=== PATIENT | female | born 1975 | race Caucasian/White ===

== ENCOUNTER 2022-04-10 13:40 | Emergency (ER) | payer OTHER ==
[2022-04-10 14:11] VITALS: BP 190/93
--- NOTE | 2022-04-10 14:41 | ERPHSYRPT ---
- History of Present Illness Time Seen by Provider: 04/10/22 14:15 Source: patient Exam Limitations: no limitations Patient Subjective Stated Complaint: C/O pain and swelling to her right upper leg for the past few months. Triage Nursing Assessment: Patient ambulated back to ED with an uneven gait. She is alert and oriented. No SOB. BLE examined. No swelling noted to right upper leg. When asked exactly where the pain was located, the patient rubbed her right posterior thigh. Pain was described at "a severe leonel horse." NO skin alterations or abnormal skin tone/color noted at this time. RLE and LLE feel the same temperature to touch. Physician History: This a 46-year-old white female has never been to the emergency department in the past and presents with right posterior thigh pain. She described it as a "c ramp" or "charley horse". It has been present for 2 months. She does not have a local primary care provider. She denies any fall or acute trauma or injury. She denies cough. She denies chest pain and she denies shortness of breath. Patient is on Plavix chronically because she has had a history of pulmonary embolus in the past. Patient has a history of hypertension and history of hyperlipidemia. Patient states that the pain is not necessarily worse but will not go away. Method of Injury: other (No injury) Occurred: other (Pain for over 2 months) Quality: intermittent, aching, cramping Severity of Pain-Max: moderate Severity of Pain-Current: moderate Lower Extremities Pain: thigh: right (Posterior) Modifying Factors: Improves With: movement Associated Symptoms: other (Hurts to walk but can do so) Allergies/Adverse Reactions: No Known Drug Allergies Allergy (Verified 04/10/22 13:48) Home Medications: Atorvastatin Calcium 1 tab PO DAILY 04/10/22 [History] Clopidogrel Bisulfate [PLAVIX Tablet] 1 tab PO DAILY 04/10/22 [History] Escitalopram Oxalate [Lexapro] 1 tab PO DAILY 04/10/22 [History] Gabapentin [Neurontin ] 1 cap PO TID 04/10/22 [History] Lisinopril 20 mg [Zestril 20 MG] 1 tab PO DAILY 04/10/22 [History] Trazodone HCl 50 mg [Desyrel 50 mg] 1 tab PO HS 04/10/22 [History] Hx Tetanus, Diphtheria Vaccination/Date Given: Yes Hx Influenza Vaccination/Date Given: Yes Hx Pneumococcal Vaccination/Date Given: No Immunizations Up to Date: Yes Travel Risk - International Travel Have you traveled outside of the country in past 3 weeks: No - Coronavirus Screening Are you exhibiting any of the following symptoms?: No Close contact with a COVID-19 positive Pt in past 14-21 Days: No - Vaccine Status Have you recieved a Covid-19 vaccination: Yes Ecommerce Marketing Manager: [email or web address] - Review of Systems Constitutional: No Symptoms Eyes: No Symptoms Ears, Nose, & Throat: No Symptoms Respiratory: No Symptoms Cardiac: No Symptoms Abdominal/Gastrointestinal: No Symptoms Genitourinary Symptoms: No Symptoms Musculoskeletal: Other (Pain right posterior thighcrampy) Skin: No Symptoms Neurological: No Symptoms Psychological: No Symptoms Endocrine: No Symptoms Hematologic/Lymphatic: No Symptoms Immunological/Allergic: No Symptoms All Other Systems: Reviewed and Negative - Past Medical History Pertinent Past Medical History: Yes Cardiac History: High Cholesterol, Hypertension Endocrine Medical History: Diabetes Type II Musculoskeletal History: Arthritis GI Medical History: Gallbladder Disease Psycho-Social History: Anxiety, Depression Other Medical History: "blood clot", Lumbago with sciatica (right side) - Past Surgical History Past Surgical History: Yes Cardiac: Cardiac Catheterization, Cardiac Stent Gastrointestinal: Cholecystectomy Musculoskeletal: Other Female Surgical History: Tubal Ligation Other Surgical History: Left tear duct, tubes in ears, fatty tumor removal, Lt knee - Social History Smoking Status: Current every day smoker How long have you smoked: 37 years Exposure to second hand smoke: No Drug Use: marijuana - Female History Hx Last Menstrual Period: Last week Hx Now: No - Nursing Vital Signs Nursing Vital Signs: Initial Vital Signs Temperature 98 F 04/10/22 13:50 Pulse Rate 114 H 04/10/22 13:50 Respiratory Rate 17 04/10/22 13:50 Blood Pressure 190/93 04/10/22 13:50 O2 Sat by Pulse Oximetry 100 04/10/22 13:50 Pain Scale Pain Intensity 10 - Physical Exam General Appearance: no apparent distress, alert, anxiety Eyes, Ears, Nose, Throat Exam: moist mucous membranes, other (Dentulous) Neck Exam: normal inspection, non-tender, supple, full range of motion Cardiovascular/Respiratory Exam: chest non-tender, no respiratory distress Gastrointestinal/Abdominal Exam: non-tender Back Exam: normal inspection, normal range of motion, No CVA tenderness, No vertebral tenderness Hips Exam: bilateral: non-tender, normal inspection, normal range of motion, no evidence of injury Legs Exam: right leg: soft tissue tenderness (Posterior thigh. No evidence of infection or ecchymosis), left leg: non-tender, bilateral leg: normal inspection, normal range of motion, no evidence of injury Knees Exam: bilateral knee: non-tender, normal inspection, normal range of motion, no evidence of injury Ankle Exam: bilateral ankle: non-tender, normal inspection, normal range of motion, no evidence of injury Foot Exam: bilateral foot: non-tender, normal inspection, normal range of motion, no evidence of injury Neuro/Tendon Exam: normal sensation, normal motor functions, normal tendon functions Mental Status Exam: alert, oriented x 3, cooperative Skin Exam: normal color, warm, dry SpO2 Interpretation: normal SpO2: 100 O2 Delivery: Room Air - Course Nursing assessment & vital signs reviewed: Yes Ordered Tests: Active Orders 24 hr Category Date Time Status BMP Stat Lab 04/10/22 14:02 Ordered D-DIMER QUANTITATIVE Stat Lab 04/10/22 14:02 Ordered MAG [MAGNESIUM] Stat Lab 04/10/22 14:02 Ordered - Progress Progress: improved, pain not gone completely Counseled pt/family regarding: lab results, diagnosis, need for follow-up - Departure Departure Disposition: Home Clinical Impression: Pain in posterior right lower extremity Condition: Stable Critical Care Time: No Referrals: DOCTOR,NO FAMILY [Primary Care Provider] - Follow up/PCP as directed Additional Instructions: Alternate ice and heat to the area of tenderness 3 times a day. Massage the area after each ice and heat application. Take your medication as prescribed. Follow-up with your primary care provider for further evaluation management. Monitor your blood sugar closely when taking your steroids Prescriptions: Prednisone 10 mg [Deltasone 10 mg] 10 mg PO TID #12 tablet Orphenadrine Citrate 100 mg [Norflex 100 MG Tablet] 100 mg PO BID #10 tab
[2022-04-10] MEDS ORDERED: PERCOCET TABLET 5/325MG PO STA (14:44)
[2022-04-10] MEDS ORDERED: solu-MEDROL 125 MG, Sterile H2O 10 ml 2 ML IM ONE ×2 (14:44)
[2022-04-10] MEDS ORDERED: Norflex 60 MG/2 ML IM ONE (14:45)
[2022-04-10] MEDS ORDERED: solu-MEDROL ONE (14:47)
[2022-04-10] MEDS ORDERED: Norflex 60 MG/2 ML ONE (14:47)
[2022-04-10] MEDS ORDERED: Sterile H2O 10 ml IJ ONE (14:47)
[2022-04-10] MEDS ORDERED: PERCOCET TABLET 5/325MG ONE (14:47)
[2022-04-10 14:55] LABS: ANION GAP 8.1 MEQ/L (5-15); BLOOD UREA NITROGEN 8 mg/dL (7-17); CHLORIDE 105 mmol/L (98-107); Calcium 9.3 mg/dL (8.4-10.2); Carbon Dioxide 26 mmol/L (22-30); Creatinine 1 0.46 mg/dL (0.52-1.04); EST GLOMERULAR FILTRATION RATE > 60.0 ML/MIN; Glucose 202 mg/dL (74-106); Potassium 3.8 mmol/L (3.5-5.1); SODIUM 136 mmol/L (137-145)
[2022-04-10 14:56] VITALS: PULSE 104; O2SAT 99
== END 2022-04-10 15:34 | disposition home or self-care (01) ==
LOC: ED 13:40
DX: M79.651 Pain in right thigh (principal); I10 Essential (primary) hypertension; E78.5 Hyperlipidemia, unspecified; E11.9 Type 2 diabetes mellitus without complications; Z72.0 Tobacco use; Z79.02 Long term (current) use of antithrombotics/antiplatelets; Z79.899 Other long term (current) drug therapy; Z79.52 Long term (current) use of systemic steroids
CPT/HCPCS: 36415; 80048; 83735; 85379; 96372; 99283; J2360; J2930; A9270-GY

== ENCOUNTER 2022-06-23 07:38 | Day surgery (SDC) | payer OTHER | END 2022-06-23 08:10 | disposition home or self-care (01) | LOC: SDC-PAIN 07:38 | PROVIDERS: ATTEND Psychiatry & Neurology Pain Medicine | DX: R73.9 Hyperglycemia, unspecified (principal); Z53.8 Procedure and treatment not carried out for other reasons | CPT/HCPCS: 82947 ==

== ENCOUNTER 2022-07-07 06:45 | Day surgery (SDC) | payer OTHER ==
[2022-07-07] MEDS ORDERED: Depo-Medrol 40 MG/ML IM ONE (06:46)
[2022-07-07] MEDS ORDERED: Sodium Chloride 0.9(Preservative Free) 10 ML IJ ONE (06:46)
[2022-07-07] MEDS ORDERED: DIPRIVAN 200 MG/20 ML IV ONE (08:47)
--- NOTE | 2022-07-07 09:53 | XRAY ---
Indication: Right L4-S1 transforaminal BEVERLY. Intraoperative fluoroscopy provided for 25 seconds. 4 digital spot image submitted for interpretation demonstrates posterior needle tips projecting over the expected right L4 and L5 nerve roots. Small amount of contrast injected for needle tip placement. Correlate with intraoperative findings/report.
[2022-07-07] MEDS ORDERED: Lactated Ringers 1,000 ML IV ONE (10:11)
--- NOTE | 2022-07-07 10:49 | XRAY ---
25 seconds of fluoroscopy was used in surgery for a right L4-S1 transforaminal BEVERLY.
== END 2022-07-07 09:15 | disposition home or self-care (01) ==
LOC: SDC-PAIN 06:45
PROVIDERS: ATTEND Psychiatry & Neurology Pain Medicine
DX: M54.16 Radiculopathy, lumbar region (principal); Z79.899 Other long term (current) drug therapy
CPT/HCPCS: 64483; 64484; 72100; 77003; 81025; 82947; J1030; J2704; Q9966

== ENCOUNTER 2022-08-11 08:53 | Day surgery (SDC) | payer OTHER ==
[2022-08-11] MEDS ORDERED: Sodium Chloride 0.9(Preservative Free) 10 ML IJ ONE (08:54)
[2022-08-11] MEDS ORDERED: LIDOCAINE HCL 1% 50 MG/5 ML VL PF IJ ONE (08:54)
[2022-08-11] MEDS ORDERED: Depo-Medrol 40 MG/ML IM ONE (08:54)
[2022-08-11] MEDS ORDERED: Decadron 4 MG INJ IV ONE (08:54)
[2022-08-11] MEDS ORDERED: DIPRIVAN 200 MG/20 ML IV ONE (10:13)
--- NOTE | 2022-08-11 11:41 | XRAY ---
Indication: Right L4-S1 transforaminal BEVERLY. Intraoperative fluoroscopy provided for 28 seconds. 2 digital spot image submitted for interpretation demonstrates posterior needle tips projecting over the expected right L4 and L5 nerve roots. Small amount of contrast injected for needle tip placement. Correlate with intraoperative findings/report.
--- NOTE | 2022-08-11 11:42 | XRAY ---
Indication: Right piriformis injection. Intraoperative fluoroscopy provided for 9 seconds. Single digital spot image submitted for interpretation demonstrates posterior needle tip projecting over the expected right piriformis muscle. Small amount of contrast injected for needle tip placement. Correlate with intraoperative findings/report.
--- NOTE | 2022-08-11 12:52 | XRAY ---
9 seconds fluoroscopy time in surgery for right piriformis injection.
--- NOTE | 2022-08-11 12:52 | XRAY ---
28 seconds fluoroscopy time in surgery for right L4-S1 transforaminal BEVERLY.
[2022-08-11] MEDS ORDERED: Lactated Ringers 1,000 ML IV ONE (13:16)
== END 2022-08-11 10:45 | disposition home or self-care (01) ==
LOC: SDC-PAIN 08:53
PROVIDERS: ATTEND Psychiatry & Neurology Pain Medicine
DX: M54.16 Radiculopathy, lumbar region (principal); M79.18 Myalgia, other site; Z79.899 Other long term (current) drug therapy
CPT/HCPCS: 20552; 64483; 64484; 72100; 72170; 77002; 77003; 81025; 82947; J1030; J1100; J2001; J2704; Q9966

== ENCOUNTER 2023-01-19 07:30 | Day surgery (SDC) | payer OTHER ==
[2023-01-19] MEDS ORDERED: Depo-Medrol 40 MG/ML IM ONE (07:31)
[2023-01-19] MEDS ORDERED: Sodium Chloride 0.9(Preservative Free) 10 ML IJ ONE (07:31)
[2023-01-19 07:45] LABS: HCG URINE TEST NEGATIVE (NEGATIVE)
[2023-01-19] MEDS ORDERED: DIPRIVAN 200 MG/20 ML IV ONE (08:35)
--- NOTE | 2023-01-19 10:19 | XRAY ---
Indication: Right L4-S1 transforaminal BEVERLY. Intraoperative fluoroscopy provided for 27 seconds. 4 digital spot image submitted for interpretation demonstrates posterior needle tips projecting over the right L4 and L5 nerve roots. Small amount of contrast injected for needle tip placement. Correlate with intraoperative findings/report.
--- NOTE | 2023-01-19 10:54 | XRAY ---
27 seconds of fluoroscopy was used in surgery for a right L4-S1 transforaminal BEVERLY.
[2023-01-19] MEDS ORDERED: Lactated Ringers 1,000 ML IV ONE (13:33)
== END 2023-01-19 09:04 | disposition home or self-care (01) ==
LOC: SDC-PAIN 07:30
PROVIDERS: ATTEND Psychiatry & Neurology Pain Medicine
DX: M54.16 Radiculopathy, lumbar region (principal); Z79.899 Other long term (current) drug therapy
CPT/HCPCS: 64483; 64484; 72100; 77003; 81025; 82947; J1030; J2704; Q9966

== ENCOUNTER 2023-10-07 18:06 | Emergency (ER) | payer BC, OTHER ==
[2023-10-07 18:22] VITALS: TEMP 97.8
--- NOTE | 2023-10-07 18:24 | ERPHSYRPT ---
- History of Present Illness Source: patient, EMS Exam Limitations: no limitations Patient Subjective Stated Complaint: PT states "I have been under allot of stress for the past two months and my chest has hurt for the past two months as well>" Triage Nursing Assessment: Pt presented alert and oriented X 3, skin pwd. Pt ambulates with an upright steady gait, able to speak in clear full sentences. Pt resting comfortabl hon [facility] bed. Hx Tetanus, Diphtheria Vaccination/Date Given: No Hx Influenza Vaccination/Date Given: Yes Hx Pneumococcal Vaccination/Date Given: No Immunizations Up to Date: Yes <MARCIO RIVERA - Last Filed: 10/07/23 18:54> <DAYANA BUTLER - Last Filed: 10/07/23 21:23> - History of Present Illness Physician History: Patient here with chest pain for 2 months. Midsternal. Nonradiating. Has been going on for a few weeks. Worse over the last 1 week. 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 No fever no chills. Given 325 aspirin prior to arrival. No EKG changes in the ambulance ride per EMS. I was able to review this. Patient is taking PO well. Same number of urinations and defecations. The patient has no signs of altered mental status, nuchal rigidity, signs of meningitis. The patient is up-to-date on all vaccinations. (MARCIO RIVERA) Allergies/Adverse Reactions: No Known Drug Allergies Allergy (Verified 03/01/23 09:20) Home Medications: Atorvastatin Calcium 1 tab PO DAILY 04/10/22 [History] Clopidogrel Bisulfate [PLAVIX Tablet] 1 tab PO DAILY 04/10/22 [History] Escitalopram Oxalate [Lexapro] 1 tab PO DAILY 04/10/22 [History] Gabapentin [Neurontin ] 800 mg PO TID 04/10/22 [History] Lisinopril 20 mg [Zestril 20 MG] 1 tab PO DAILY 04/10/22 [History] Acetaminophen 500 mg [Tylenol Extra Strength 500 mg] 500 mg PO DAILY 03/01/23 [History] Albuterol Sulfate [Proair Respiclick] 90 mcg IH DAILY 03/01/23 [History] Insulin Aspart [Novolog] 100 unit SQ UD 03/01/23 [History] Omeprazole 40 mg PO DAILY 03/01/23 [History] Topiramate 25 mg [Topamax 25 MG] 25 mg PO DAILY 03/01/23 [History] Travel Risk - International Travel Have you traveled outside of the country in past 3 weeks: No - Emerging Infectious Disease Are you exhibiting symptoms associated with any current EIDs: No <MARCIO RIVERA - Last Filed: 10/07/23 18:54> - Past Medical History Pertinent Past Medical History: Yes Neurological History: Migraines Cardiac History: Coronary Artery Disease, High Cholesterol, Hypertension Respiratory History: Asthma Endocrine Medical History: Diabetes Type I Musculoskeletal History: Degenerative Disk Disease GI Medical History: GERD, Gallbladder Disease Psycho-Social History: Anxiety, Depression Other Medical History: DEPRESSION, GERD. HX OF CARDIAC STENT X 1, CARDIAC ABL ATION, CHOLECYSTECTOMY. amenia - Past Surgical History Past Surgical History: Yes Cardiac: Cardiac Catheterization, Cardiac Stent Gastrointestinal: Cholecystectomy Musculoskeletal: Other Female Surgical History: Tubal Ligation Other Surgical History: Left tear duct, tubes in ears, fatty tumor removal, Lt knee - Female History Hx Last Menstrual Period: 09/16/2023 Hx Now: No - Social History Smoking Status: Current every day smoker How long have you smoked: 37 years Exposure to second hand smoke: Yes Drug Use: marijuana <MARCIO RIVERA - Last Filed: 10/07/23 18:54> - Physical Exam SpO2 Interpretation: normal SpO2: 98 <MARCIO RIVERA - Last Filed: 10/07/23 18:54> - Nursing Vital Signs Nursing Vital Signs: Initial Vital Signs Temperature 97.8 F 10/07/23 18:15 Pulse Rate 110 H 10/07/23 18:15 Respiratory Rate 22 10/07/23 18:15 Blood Pressure 146/91 10/07/23 18:15 O2 Sat by Pulse Oximetry 98 10/07/23 18:15 Pain Scale Pain Intensity 4 - Physical Exam Comments: 10/07/23 18:22 Review of Systems Constitutional: Negative for fever. HENT: Negative for congestion. Respiratory: Negative for shortness of breath. Cardiovascular: Chest pain Gastrointestinal: Negative for abdominal pain. Genitourinary: Negative for dysuria. Musculoskeletal: Negative for back pain. Skin: Negative for rash. Neurological: Negative for headaches. Psychiatric/Behavioral: Negative for behavioral problems. All other systems reviewed and are negative. Physical Exam Vitals signs and nursing note reviewed. Constitutional: Appearance: Patient is well-developed. HENT: Head: Normocephalic and atraumatic. Eyes: Conjunctiva/sclera: Conjunctivae normal. Neck: Musculoskeletal: Normal range of motion. Trachea: No tracheal deviation. Cardiovascular: Rate and Rhythm: Normal rate. Pulmonary: Effort: Pulmonary effort is normal. No respiratory distress. Abdominal: Palpations: Abdomen is soft. Musculoskeletal: General: No deformity. Skin: General: Skin is warm and dry. Neurological/ Psychiatric: Mental Status: Mental status, behavior, interaction with environment is appropriate for patient's age and condition (MARCIO RIVERA) - Course Nursing assessment & vital signs reviewed: Yes EKG Interpreted by Me: Sinus Rhythm <MARCIO RIVERA - Last Filed: 10/07/23 18:54> - Course EKG Interpreted by Me: Sinus Rhythm <DAYANA BUTLER - Last Filed: 10/07/23 21:23> Ordered Tests: Active Orders 24 hr Category Date Time Status EKG-ER Only STAT Care 10/07/23 18:37 Active IV Insertion STAT Care 10/07/23 18:37 Active CHEST 1 VIEW (PORTABLE) Stat Exams 10/07/23 18:10 Taken CBC W DIFF Stat Lab 10/07/23 18:20 Completed CK-Creatinine Phosphokinase Stat Lab 10/07/23 18:20 Completed CMP Stat Lab 10/07/23 18:20 Completed D-DIMER QUANTITATIVE Stat Lab 10/07/23 18:20 Completed HCG QUALITATIVE, SERUM Stat Lab 10/07/23 18:20 Completed LIPASE Stat Lab 10/07/23 18:20 Completed NT PRO BNPII Stat Lab 10/07/23 18:20 Completed TROPONIN Q4H Lab 10/07/23 18:20 Completed TROPONIN Q4H Lab 10/07/23 20:25 Completed TROPONIN Q4H Lab 10/08/23 02:15 Ordered Lab/Rad Data: Laboratory Result Diagrams 10/07/23 18:20 10/07/23 18:20 Laboratory Results 10/07/23 10/07/23 10/07/23 Range/Units 20:25 18:20 18:20 WBC (4.0-10.5) x10^3/uL RBC (4.1-5.4) x10^6/uL Hgb (12.0-16.0) g/dL Hct (35-47) % MCV (78-100) fL MCH (26-32) pg MCHC (32-36) g/dL RDW (11.5-14.0) % Plt Count (150-450) x10^3/uL MPV (7.5-11.0) fL Gran % (36.0-66.0) % Immature Gran % (Auto) (0.00-0.4) % Nucleat RBC Rel Count (0.00-0.1) % Eos # (Auto) (0-0.5) x10^3/uL Immature Gran # (Auto) (0.00-0.03) x10^3u/L Absolute Lymphs (auto) (1.0-4.6) x10^3/uL Absolute Monos (auto) (0.0-1.3) x10^3/uL Absolute Nucleated RBC (0.00-0.01) x10^3u/L Lymphocytes % (24.0-44.0) % Monocytes % (0.0-12.0) % Eosinophils % (0.00-5.0) % Basophils % (0.0-0.4) % Absolute Granulocytes (1.4-6.9) x10^3/uL Basophils # (0-0.4) x10^3/uL D-Dimer (0.0-0.50) mg/L Sodium (135-145) mmol/L Potassium (3.5-5.1) mmol/L Chloride (98-107) mmol/L Carbon Dioxide (22-30) mmol/L Anion Gap (5-15) MEQ/L BUN (7-17) mg/dL Creatinine (0.52-1.04) mg/dL Estimated GFR ML/MIN Glucose (74-106) mg/dL Calcium (8.4-10.2) mg/dL Total Bilirubin (0.2-1.3) mg/dL AST (14-36) U/L ALT (0-35) U/L Alkaline Phosphatase (38-126) U/L Creatine Kinase (30-135) U/L Troponin I < 0.012 (0.000-0.033) ng/mL NT-Pro-B Natriuret Pep < 20.0 (<300) pg/mL Serum Total Protein (6.3-8.2) g/dL Albumin (3.5-5.0) g/dL Lipase (23-300) U/L Serum HCG, Qual NEGATIVE (NEGATIVE) 10/07/23 10/07/23 10/07/23 Range/Units 18:20 18:20 18:20 WBC (4.0-10.5) x10^3/uL RBC (4.1-5.4) x10^6/uL Hgb (12.0-16.0) g/dL Hct (35-47) % MCV (78-100) fL MCH (26-32) pg MCHC (32-36) g/dL RDW (11.5-14.0) % Plt Count (150-450) x10^3/uL MPV (7.5-11.0) fL Gran % (36.0-66.0) % Immature Gran % (Auto) (0.00-0.4) % Nucleat RBC Rel Count (0.00-0.1) % Eos # (Auto) (0-0.5) x10^3/uL Immature Gran # (Auto) (0.00-0.03) x10^3u/L Absolute Lymphs (auto) (1.0-4.6) x10^3/uL Absolute Monos (auto) (0.0-1.3) x10^3/uL Absolute Nucleated RBC (0.00-0.01) x10^3u/L Lymphocytes % (24.0-44.0) % Monocytes % (0.0-12.0) % Eosinophils % (0.00-5.0) % Basophils % (0.0-0.4) % Absolute Granulocytes (1.4-6.9) x10^3/uL Basophils # (0-0.4) x10^3/uL D-Dimer 0.21 (0.0-0.50) mg/L Sodium 139 (135-145) mmol/L Potassium 4.1 (3.5-5.1) mmol/L Chloride 112 H (98-107) mmol/L Carbon Dioxide 17 L (22-30) mmol/L Anion Gap 14.5 (5-15) MEQ/L BUN 11 (7-17) mg/dL Creatinine 0.69 (0.52-1.04) mg/dL Estimated GFR 109.0 ML/MIN Glucose 192 H (74-106) mg/dL Calcium 9.9 (8.4-10.2) mg/dL Total Bilirubin 0.40 (0.2-1.3) mg/dL AST 21 (14-36) U/L ALT 20 (0-35) U/L Alkaline Phosphatase 95 (38-126) U/L Creatine Kinase 85 (30-135) U/L Troponin I < 0.012 (0.000-0.033) ng/mL NT-Pro-B Natriuret Pep (<300) pg/mL Serum Total Protein 7.8 (6.3-8.2) g/dL Albumin 4.3 (3.5-5.0) g/dL Lipase 33 (23-300) U/L Serum HCG, Qual (NEGATIVE) 10/07/23 Range/Units 18:20 WBC 10.5 (4.0-10.5) x10^3/uL RBC 5.04 (4.1-5.4) x10^6/uL Hgb 14.2 (12.0-16.0) g/dL Hct 43.1 (35-47) % MCV 85.5 (78-100) fL MCH 28.2 (26-32) pg MCHC 32.9 (32-36) g/dL RDW 14.5 H (11.5-14.0) % Plt Count 297 (150-450) x10^3/uL MPV 10.0 (7.5-11.0) fL Gran % 62.3 (36.0-66.0) % Immature Gran % (Auto) 0.3 (0.00-0.4) % Nucleat RBC Rel Count 0.0 (0.00-0.1) % Eos # (Auto) 0.12 (0-0.5) x10^3/uL Immature Gran # (Auto) 0.03 (0.00-0.03) x10^3u/L Absolute Lymphs (auto) 3.12 (1.0-4.6) x10^3/uL Absolute Monos (auto) 0.66 (0.0-1.3) x10^3/uL Absolute Nucleated RBC 0.00 (0.00-0.01) x10^3u/L Lymphocytes % 29.7 (24.0-44.0) % Monocytes % 6.3 (0.0-12.0) % Eosinophils % 1.1 (0.00-5.0) % Basophils % 0.3 (0.0-0.4) % Absolute Granulocytes 6.55 (1.4-6.9) x10^3/uL Basophils # 0.03 (0-0.4) x10^3/uL D-Dimer (0.0-0.50) mg/L Sodium (135-145) mmol/L Potassium (3.5-5.1) mmol/L Chloride (98-107) mmol/L Carbon Dioxide (22-30) mmol/L Anion Gap (5-15) MEQ/L BUN (7-17) mg/dL Creatinine (0.52-1.04) mg/dL Estimated GFR ML/MIN Glucose (74-106) mg/dL Calcium (8.4-10.2) mg/dL Total Bilirubin (0.2-1.3) mg/dL AST (14-36) U/L ALT (0-35) U/L Alkaline Phosphatase (38-126) U/L Creatine Kinase (30-135) U/L Troponin I (0.000-0.033) ng/mL NT-Pro-B Natriuret Pep (<300) pg/mL Serum Total Protein (6.3-8.2) g/dL Albumin (3.5-5.0) g/dL Lipase (23-300) U/L Serum HCG, Qual (NEGATIVE) - Progress Progress: improved Counseled pt/family regarding: lab results, diagnosis, need for follow-up, rad results <MARCIO RIVERA - Last Filed: 10/07/23 18:54> - Progress Progress: improved Counseled pt/family regarding: lab results, diagnosis, need for follow-up, rad results, smoking cessation <DAYANA BUTLER - Last Filed: 10/07/23 21:23> - Progress Progress Note: 10/07/23 18:23 Differential diagnosis includes: PNA, STEMI, NSTEMI, other infection, musculoskeletal pain, pneumothorax - We'll obtain basic labs, fluids, EKG, troponin, chest x-ray, D-dimer - EKG shows no ST changes - my read - O2 saturations consistently greater than 95%. 10/07/23 18:54 Transfer of care to Dr. Dayana Butler at 7 PM. To follow-up on all labs and imaging. Disposition per this. (MARCIO RIVERA) 10/07/23 19:22 I took over care for Dr Rivera at 19:00 10/07/23 19:50 PERC negative on re-assessment initial trop negative d dimer negative labs largely unremarkable will repeat troponin pt resting comfortably at time of exam 10/07/23 19:53 vitals: HR 95, O2 sat 98%, RR 18, BP 132/92 10/07/23 21:18 repeat troponin negative pt resting comfortably, discomfort has improved but not completely gone low suspicion for cardiac cause of chest discomfort, likely related to costochondritis 2/2 cough that started several months prior discussed all results w/ pt who voiced understanding follow up w/ PCP Olegario Kelly for further w/u of chronic cough continue use of daily inhaler, can use mucinex for expectorant to help clear mucus Return to ED if: chest pain worsens, pain radiates into jaw/shoulder/back, d evelop blurry vision, develop shortness of breath (DAYANA BUTLER) Medical Desision Making - Risk of complications Minimal Risk: Minimal risk of morbidity <DAYANA BUTLER - Last Filed: 10/07/23 21:23> - Departure Critical Care Time: No <MARCIO RIVERA - Last Filed: 10/07/23 18:54> - Departure Departure Disposition: Home Critical Care Time: No <DAYANA BUTLER - Last Filed: 10/07/23 21:23> - Departure Clinical Impression: Chest pain, Costochondral pain, Chronic cough Condition: Good Referrals: OLEGARIO KELLY, DOLL WIGS HACKLER [Primary Care Provider] - Follow up/PCP as directed Additional Instructions: follow up w/ PCP Olegario Kelly for further w/u of chronic cough continue use of daily inhaler, can use mucinex for expectorant to help clear mucus Return to ED if: chest pain worsens, pain radiates into jaw/shoulder/back, develop blurry vision, develop shortness of breath
[2023-10-07 18:25] LABS: Absolute Neutrophil Ct (ANC) 6.55 x10^3/uL (1.4-6.9); BASOPHIL % 0.3 % (0.0-0.4); Basophil (Absolute #) 0.03 x10^3/uL (0-0.4); Eosinophil % 1.1 % (0.00-5.0); Eosinophil (Absolute #) 0.12 x10^3/uL (0-0.5); Hematocrit 43.1 % (35-47); Hemoglobin 14.2 g/dL (12.0-16.0); IMMATURE GRAN # 0.03 x10^3u/L (0.00-0.03); IMMATURE GRAN % 0.3 % (0.00-0.4); Lymphocyte (Absolute #) 3.12 x10^3/uL (1.0-4.6); Lymphocytes % 29.7 % (24.0-44.0); Mean Cell Volume 85.5 fL (78-100); Mean Corpuscular Hemoglobin 28.2 pg (26-32); Mean Corpuscular Hgb Concent. 32.9 g/dL (32-36); Monocyte (Absolute #) 0.66 x10^3/uL (0.0-1.3); Monocytes % 6.3 % (0.0-12.0); Neutrophil % 62.3 % (36.0-66.0); Platelet Count 297 x10^3/uL (150-450); Red Blood Count 5.04 x10^6/uL (4.1-5.4); Red Cell Distribution Width 14.5 % (11.5-14.0); White Blood Count 10.5 x10^3/uL (4.0-10.5)
[2023-10-07 18:38] LABS: ALBUMIN 4.3 g/dL (3.5-5.0); ANION GAP 14.5 MEQ/L (5-15); BILIRUBIN,TOTAL 0.4 mg/dL (0.2-1.3); Calcium 9.9 mg/dL (8.4-10.2); Creatinine 1 0.69 mg/dL (0.52-1.04); Potassium 4.1 mmol/L (3.5-5.1); Total Protein 7.8 g/dL (6.3-8.2)
[2023-10-07 18:43] LABS: HCG SERUM TEST NEGATIVE (NEGATIVE)
[2023-10-07 20:11] VITALS: RESP 22
[2023-10-07 21:09] VITALS: BP 127/96; PULSE 89; O2SAT 97
--- NOTE | 2023-10-08 07:42 | XRAY ---
Indication: Chest pain. Comparison: None Portable chest demonstrates normal heart and lungs. Bony thorax intact.
== END 2023-10-07 21:35 | disposition home or self-care (01) ==
LOC: ED 18:06
DX: R07.9 Chest pain, unspecified (principal); R07.1 Chest pain on breathing; R05.3 Chronic cough; E78.5 Hyperlipidemia, unspecified; I10 Essential (primary) hypertension; E10.9 Type 1 diabetes mellitus without complications; Z79.02 Long term (current) use of antithrombotics/antiplatelets; Z79.4 Long term (current) use of insulin; Z79.899 Other long term (current) drug therapy; Z72.0 Tobacco use
CPT/HCPCS: 36000; 36415; 71045; 80053; 82550; 83690; 83880; 84484; 84703; 85025; 85379; 93005; 99284